=== PATIENT | female | born 1935 | race Caucasian/White ===

== ENCOUNTER → 2016-12-07 | Outpatient (CLI) | payer MEDICARE ==
--- NOTE | 2016-12-11 18:53 | Diagnostic Imaging Report ---
Digital mammogram bilateral screening. This study was compared to the prior exams of 11/30/2015, 11/25/2014, and 11/10/2013. At this time, there are no current complaints. The current study was also evaluated with A Computer Aided Detection (CAD) system. FINDINGS: There are scattered fibroglandular densities in both breasts which could obscure a lesion. Overall, there does not appear to have been any significant change when compared to the prior exam. No primary or secondary sign of malignancy is noted. 3D tomographic images fail to show any sign of malignancy. IMPRESSION: There is no radiographic evidence for malignancy. ACR BI-RADS Category 1: Negative. Result letter will be mailed to the patient. Note: At least 10% of breast cancer is not imaged by mammography. Dictated by: Dictated on workstation # [id number]
== END ==
LOC: RAD 12:51
PROVIDERS: ATTEND Family Medicine
DX: Z12.31 Encounter for screening mammogram for malignant neoplasm of breast (principal)
CPT/HCPCS: 77067

== ENCOUNTER → 2017-12-10 | Outpatient (CLI) | payer MEDICARE ==
--- NOTE | 2017-12-10 19:10 | Diagnostic Imaging Report ---
INDICATION: Routine screening. Comparison is made with prior mammogram from 12/07/2016 and 11/30/2015. 2-D and 3-D bilateral screening mammography was performed with CAD. The current study was also evaluated with a Computer Aided Detection (CAD) system. FINDINGS: Scattered fibroglandular densities are identified bilaterally. Small circumscribed benign-appearing nodules again noted bilaterally and most suggestive of intraparenchymal lymph nodes. Benign parenchymal and vascular calcifications are also seen bilaterally. No spiculated mass or malignant-appearing microcalcifications are seen. The axillae are unremarkable. IMPRESSION: No mammographic features suspicious for malignancy are identified. ACR BI-RADS Category 2: Benign findings. Result letter will be mailed to the patient. Note: At least 10% of breast cancer is not imaged by mammography. Dictated by: Dictated on workstation # [id number]
== END ==
LOC: RAD 14:56
PROVIDERS: ATTEND Family Medicine
DX: Z12.31 Encounter for screening mammogram for malignant neoplasm of breast (principal)
CPT/HCPCS: 77067

== ENCOUNTER 2018-06-04 18:50 | Emergency (ER) | payer MEDICARE ==
[~2018-06-04] VITALS: Ht 167.6 cm; Wt 98.9 kg
--- OUTSIDE RECORDS SUMMARY | 2018-06-04 18:56 | XMS REPORT | Continuity of Care Document ---
Author Author [facility] Organization [facility] Address Unknown Phone Unavailable Allergies There is no data. Medications There is no data. Problems Date Dx Coded Attending Type Code Diagnosis Diagnosed By 11/27/2014 GELLENDER DO, MARIA ESTHER Bonilla Ot V76.12 12/01/2014 GELLENDER DO, MARIA ESTHER A Ot V76.12 12/16/2014 GELLENDER DO, MARIA ESTHER A Ot V76.12 11/30/2015 GELLENDER DO, MARIA ESTHER A Ot V76.12 OTH SCREEN MAMMO-MALIGN NEOPLASM OF BARNEY 11/30/2015 GELLENDER DO, MARIA ESTHER A Ot V76.12 OTH SCREEN MAMMO-MALIGN NEOPLASM OF BARNEY 11/30/2015 GELLENDER DO, MARIA ESTHER A Ot V76.12 OTH SCREEN MAMMO-MALIGN NEOPLASM OF BARNEY 12/01/2015 GELLENDER DO, MARIA ESTHER A Ot Z12.31 ENCNTR SCREEN MAMMOGRAM FOR MALIGNANT NE 12/01/2015 GELLENDER DO, MARIA ESTHER A Ot Z12.31 ENCNTR SCREEN MAMMOGRAM FOR MALIGNANT NE 12/21/2015 GELLENDER DO, MARIA ESTHER A Ot Z12.31 ENCNTR SCREEN MAMMOGRAM FOR MALIGNANT NE 12/07/2016 GELLENDER DO, MARIA ESTHER A Ot Z12.31 ENCNTR SCREEN MAMMOGRAM FOR MALIGNANT NE 12/07/2016 GELLENDER DO, MARIA ESTHER A Ot V76.12 OTH SCREEN MAMMO-MALIGN NEOPLASM OF BARNEY 12/07/2016 GELLENDER DO, MARIA ESTHER A Ot V76.12 OTH SCREEN MAMMO-MALIGN NEOPLASM OF BARNEY 12/07/2016 GELLENDER DO, MARIA ESTHER A Ot V76.12 OTH SCREEN MAMMO-MALIGN NEOPLASM OF BARNEY 12/07/2016 GELLENDER DO, MARIA ESTHER A Ot Z12.31 ENCNTR SCREEN MAMMOGRAM FOR MALIGNANT NE 12/07/2016 GELLENDER DO, MARIA ESTHER A Ot Z12.31 ENCNTR SCREEN MAMMOGRAM FOR MALIGNANT NE 12/27/2016 GELMARIA ESTHER JAQUEZ DO Ot Z12.31 ENCNTR SCREEN MAMMOGRAM FOR MALIGNANT NE 12/16/2017 Ot Z12.31 ENCNTR SCREEN MAMMOGRAM FOR MALIGNANT NE 01/17/2018 Ot Z12.31 ENCNTR SCREEN MAMMOGRAM FOR MALIGNANT NE Procedures There is no data. Results There is no data. Encounters ACCT No. Visit Date/Time Discharge Status Pt. Type Provider Facility Loc./Unit Complaint [id number] 12/07/2016 12:51:00 12/07/2016 23:59:59 CLS Outpatient MARIA ESTHER TALBOT DO [facility] RAD SCREENING [id number] 11/30/2015 13:46:00 11/30/2015 23:59:59 CLS Outpatient MARIA ESTHER TALBOT DO [facility] RAD SCREENING [id number] 11/25/2014 10:04:00 11/25/2014 23:59:59 CLS Outpatient MARIA ESTHER TALBOT DO [facility] RAD SCREENING [id number] 11/10/2013 10:00:00 11/10/2013 23:59:59 CLS Outpatient MARIA ESTHER TALBOT DO [facility] RAD ROUTINE [id number] 11/07/2012 10:13:00 11/07/2012 23:59:59 CLS Outpatient MARIA ESTHER TALBOT DO [facility] RAD SCREENING [id number] 06/04/2018 18:51:00 ACT Emergency SINDHU ROQUE MD [facility] ER NOSE AND EYE BLEEDING [id number] 12/10/2017 14:56:00 Document Registration [email or web address] 11/25/2014 10:07:19 ACT Document Registration
--- NOTE | 2018-06-04 19:24 | ED EENT ---
History of Present Illness General Chief Complaint: Nasal Problems Stated Complaint: NOSE AND EYE BLEEDING Nursing Triage Note: Patient advises that she experienced a nosebleed yesterday that improved however tonight she experienced another nosebleed that she was unable to get stopped. She states that the bleeding is in her eye as well. Source: patient Exam Limitations: no limitations History of Present Illness Date Seen by Provider: Jun 04, 2018 Time Seen by Provider: 19:00 Initial Comments 83-year-old female who presents to the emergency room with complaints of a nosebleed. She reports that she had a nosebleed yesterday that stopped on its own but tonight she tried to blow her nose no started bleeding again. She denies any nasal trauma or denies using blood thinners. She did have some bleeding was coming out of her left eye. Past Qhzhqkf-Zcraoj-Rqxlwp Hx Patient Social History Alcohol Use: Denies Use Recreational Drug Use: No Smoking Status: Never a Smoker Recent Foreign Travel: No Contact w/Someone Who Travel: No Recent Infectious Disease Expo: No Recent Hopitalizations: No Seasonal Allergies Seasonal Allergies: No Past Medical History Surgeries: Yes (rectocele, cystocele) Hysterectomy, Orthopedic Respiratory: No Cardiac: No Neurological: No Genitourinary: No Gastrointestinal: No Musculoskeletal: No Endocrine: No HEENT: No Cancer: No Psychosocial: No Physical Exam Vital Signs Vital Signs - First Documented Height, Weight, BMI Height: 5'6.00" Weight: 218lbs. oz. 98.014458qg; BMI Method:Stated Procedures/Interventions Nasal : Nasal Location: Left Clots Cleared from Nasal: Patient Blowing Inspection with: Otoscope, Nasal Speculum Progress The nares were cleared by having the patient blow her nose. A large clot was removed out of the left knee air. Pressure was held with a nasal clamp. The bleeding stopped at this time. We will observe the patient for a bit to ensure that the bleeding doesn't stop. Progress/Results/Core Measures Results/Orders Vital Signs/I&O 06/04/18 19:03 B/P (MAP) Departure Impression Primary Impression: Epistaxis Disposition: HOME, SELF-CARE Condition: Stable/Unchanged Departure-Patient Inst. Decision time for Depature: 19:58 Referrals: MARIA ESTHER TALBOT DO (PCP/Family) Primary Care Physician Patient Instructions: Nosebleeds (DC) Add. Discharge Instructions: You may benefit by using a humidifier and your home along with your fireplace to prevent further prompting out your mucous membranes. If the bleeding should return hold pressure if it does not stop with manual pressure return back to the emergency room. Follow-up with your primary care as needed. Return back to the emergency room for worsening symptoms or concerns as needed. All discharge instructions reviewed with patient and/or family. Voiced understanding. GENIE GUSMAN Jun 04, 2018 19:24
[2018-06-04 20:02] VITALS: BP 138/63
== END 2018-06-04 20:03 | disposition home or self-care (01) ==
LOC: EDUNIT# 18:50 → ER 18:51
DX: R04.0 Epistaxis (principal); Z90.710 Acquired absence of both cervix and uterus; Z98.890 Other specified postprocedural states

== ENCOUNTER 2018-11-26 05:35 | Outpatient (CLI) | payer MEDICARE ==
[~2018-11-26] VITALS: Ht 167.6 cm; Wt 99.8 kg
[2018-11-27] MEDS ORDERED: MELA5CAP PO (12:27)
[2018-11-27] MEDS ORDERED: ATEN50TA PO (12:27)
[2018-11-27] MEDS ORDERED: DESV50TA PO (12:27)
[2018-11-27] MEDS ORDERED: SIMV20TA3 PO (12:27)
[2018-11-27] MEDS ORDERED: LORA10TA7 PO (12:27)
[2018-11-27] MEDS ORDERED: FESO4TAB PO (12:27)
== END 2018-11-27 12:40 | disposition home or self-care (01) ==
LOC: PREOP 05:35
PROVIDERS: ATTEND Specialist
DX: Z01.818 Encounter for other preprocedural examination (principal)

== ENCOUNTER 2018-11-29 07:13 | Day surgery (SDC) | payer MEDICARE ==
[~2018-11-29] VITALS: Ht 167.6 cm; Wt 99.8 kg
[~2018-11-29 07:13] MED LIST: ATEN50TA PO; DESV50TA PO; FESO4TAB PO; LORA10TA7 PO; MELA5CAP PO; SIMV20TA3 PO
[2018-11-29] MEDS ORDERED: MOXIFLOXACIN OPHTH SOLN 5 MG/ML 0.3 ML SYRINGE OP ONE (07:30)
[2018-11-29] MEDS ORDERED: LIDOCAINE PF 1% 2 ML AMP IR PRN (07:30)
[2018-11-29] MEDS ORDERED: TIMOLOL MALEATE 0.5% 5 ML (TIMOPTIC) BTL OU PRN (07:30)
[2018-11-29] MEDS ORDERED: POVIDONE (BETADINE) OPHTH SOLN 5% 30 ML OP ONE (07:30)
[2018-11-29 07:35] VITALS: BP 189/89
[2018-11-29] MEDS: TETRACAINE 0.5% OPHTH SOLN 4 ML BTL (SINGLE DOSE ONLY) OU PRN ×4 (07:49→08:11)
[2018-11-29] MEDS: PHENYLEPHRINE 10% OPHTH (NEO-SYN) 5 ML BTL OU SCH ×3 (08:00→08:11)
[2018-11-29] MEDS: CYCLOPENTOLATE 1% (CYCLOGYL) 2 ML DROPS OP SCH ×3 (08:00→08:11)
[2018-11-29] MEDS ORDERED: MIDAZOLAM 2 MG/2 ML (VERSED) VIAL ONE (08:31)
--- NOTE | 2018-11-29 08:31 | Ophthalmologist Pre-Op Note ---
Pre-Operative Progress Note H&P Reviewed The H&P was reviewed, patient examined and no changes noted. Date H&P Reviewed: Nov 29, 2018 Time H&P Reviewed: 08:31 Pre-Op Dx Cataract, Right Eye ETIENNE HOUSTON MD Nov 29, 2018 08:31
--- NOTE | 2018-11-29 08:54 | Ophthalmology Operative Report ---
Cataract removal/placement IOL PREOPERATIVE DIAGNOSIS: Cataract Right Eye POSTOPERATIVE DIAGNOSIS: Cataract Right Eye PROCEDURE: Cataract removal and placement of posterior chamber implant, right eye SURGEON: Herbert Houston ANESTHESIA: Topical with sedation COMPLICATIONS: None ESTIMATED BLOOD LOSS: Minimal DESCRIPTION OF PROCEDURE: After proper informed consent was obtained, the patient, a 83 female, was taken to the Operating Room and the right eye was anesthetized with tetracaine. The right eye was then prepped and draped in the usual manner. A wire lid speculum was placed. A paracentesis was made at the left hand position. Preservative free lidocaine was injected into the anterior chamber followed by viscoelastic. A clear corneal incision was made in the temporal position. A capsulorrhexis was preformed and the central nuclear and cortical material were removed. The posterior capsule was polished and Khris 22.0 AU00T0 IOL was placed into the capsular bag. The residual viscoelastic was aspirated and balanced saline solution was injected into the anterior chamber. Moxifloxacin was injected into the anterior chamber. The wound was checked and found to be water tight. The patient tolerated the procedure well without complications. HERBERT HOUSTON MD Nov 29, 2018 08:54
[2018-11-29 09:05] VITALS: BP 170/95
[2018-11-29] MEDS ORDERED: acetaZOLAMIDE ER 500 MG CAP (DIAMOX SEQUELS) PO ONE (09:30)
--- NOTE | 2018-11-29 10:56 | Anesthesia-General Post-Op ---
MAC Patient Condition Mental Status/LOC: Same as Preop Cardiovascular: Satisfactory Nausea/Vomiting: Absent Respiratory: Satisfactory Pain: Controlled Complications: Absent Post Op Complications Complications None Follow Up Care/Instructions Patient Instructions None needed. Anesthesiology Discharge Order Discharge Order Patient is doing well, no complaints, stable vital signs, no apparent adverse anesthesia problems. No complications reported per nursing. FEROZ PALMA CRNA Nov 29, 2018 10:56
== END 2018-11-29 09:05 | disposition home or self-care (01) ==
LOC: SDC 07:13
PROVIDERS: ATTEND Specialist
DX: H25.11 Age-related nuclear cataract, right eye (principal); F41.9 Anxiety disorder, unspecified; I10 Essential (primary) hypertension; Z91.048 Other nonmedicinal substance allergy status; Z90.710 Acquired absence of both cervix and uterus; Z79.899 Other long term (current) drug therapy; Z80.41 Family history of malignant neoplasm of ovary

== ENCOUNTER 2018-12-11 06:06 | Outpatient (CLI) | payer MEDICARE ==
[~2018-12-11] VITALS: Ht 167.6 cm; Wt 52.2 kg
== END 2018-12-11 11:54 | disposition home or self-care (01) ==
LOC: PREOP 06:06
PROVIDERS: ATTEND Specialist
DX: Z01.818 Encounter for other preprocedural examination (principal)

== ENCOUNTER 2018-12-13 07:04 | Day surgery (SDC) | payer MEDICARE ==
[~2018-12-13] VITALS: Ht 167.6 cm; Wt 52.2 kg
[2018-12-13 07:15] VITALS: BP 171/82
[2018-12-13] MEDS ORDERED: POVIDONE (BETADINE) OPHTH SOLN 5% 30 ML OP ONE (07:15)
[2018-12-13] MEDS ORDERED: LIDOCAINE PF 1% 2 ML AMP IR PRN (07:15)
[2018-12-13] MEDS ORDERED: MOXIFLOXACIN OPHTH SOLN 5 MG/ML 0.3 ML SYRINGE OP ONE (07:15)
[2018-12-13] MEDS ORDERED: TIMOLOL MALEATE 0.5% 5 ML (TIMOPTIC) BTL OU PRN (07:15)
[2018-12-13] MEDS: TETRACAINE 0.5% OPHTH SOLN 4 ML BTL (SINGLE DOSE ONLY) OU PRN ×4 (07:19→07:40)
[2018-12-13] MEDS: PHENYLEPHRINE 10% OPHTH (NEO-SYN) 5 ML BTL OU SCH ×3 (07:30→07:40)
[2018-12-13] MEDS: CYCLOPENTOLATE 1% (CYCLOGYL) 2 ML DROPS OP SCH ×3 (07:30→07:40)
[2018-12-13] MEDS ORDERED: MIDAZOLAM 2 MG/2 ML (VERSED) VIAL ONE (08:10)
--- NOTE | 2018-12-13 08:13 | Ophthalmologist Pre-Op Note ---
Pre-Operative Progress Note H&P Reviewed The H&P was reviewed, patient examined and no changes noted. Date H&P Reviewed: Dec 13, 2018 Time H&P Reviewed: 08:13 Pre-Op Dx Cataract, Left Eye ETIENNE HOUSTON MD Dec 13, 2018 08:13
--- NOTE | 2018-12-13 08:37 | Ophthalmology Operative Report ---
Cataract removal/placement IOL PREOPERATIVE DIAGNOSIS: Cataract Left Eye POSTOPERATIVE DIAGNOSIS: Cataract Left Eye PROCEDURE: Cataract removal and placement of posterior chamber implant, left eye SURGEON: Herbert Houston ANESTHESIA: Topical with sedation COMPLICATIONS: None ESTIMATED BLOOD LOSS: Minimal DESCRIPTION OF PROCEDURE: After proper informed consent was obtained, the patient, a 83 female, was taken to the Operating Room and the left eye was anesthetized with tetracaine. The left eye was then prepped and draped in the usual manner. A wire lid speculum was placed. A paracentesis was made at the left hand position. Preservative free lidocaine was injected into the anterior chamber followed by viscoelastic. A clear corneal incision was made in the temporal position. A capsulorrhexis was preformed and the central nuclear and cortical material were removed. The posterior capsule was polished and an Khris 21.5 AU00T0 was placed into the capsular bag. The residual viscoelastic was aspirated and balanced saline solution was injected into the anterior chamber. Moxifloxacin was injected into the anterior chamber. The wound was checked and found to be water tight. The patient tolerated the procedure well without complications. HERBERT HOUSTON MD Dec 13, 2018 08:37
[2018-12-13 08:45] VITALS: BP 180/86
[2018-12-13] MEDS ORDERED: acetaZOLAMIDE ER 500 MG CAP (DIAMOX SEQUELS) PO ONE (09:00)
--- NOTE | 2018-12-13 14:39 | Anesthesia-General Post-Op ---
MAC Patient Condition Mental Status/LOC: Same as Preop Cardiovascular: Satisfactory Nausea/Vomiting: Absent Respiratory: Satisfactory Pain: Controlled Complications: Absent Post Op Complications Complications None Follow Up Care/Instructions Patient Instructions None needed. Anesthesiology Discharge Order Discharge Order Patient is doing well, no complaints, stable vital signs, no apparent adverse anesthesia problems. No complications reported per nursing. SALOMÓN ROSS CRNA Dec 13, 2018 14:39
== END 2018-12-13 08:44 | disposition home or self-care (01) ==
LOC: SDC 07:04
PROVIDERS: ATTEND Specialist
DX: H25.12 Age-related nuclear cataract, left eye (principal); I10 Essential (primary) hypertension; F41.9 Anxiety disorder, unspecified; Z90.710 Acquired absence of both cervix and uterus; Z91.048 Other nonmedicinal substance allergy status; Z80.41 Family history of malignant neoplasm of ovary; Z79.899 Other long term (current) drug therapy

== ENCOUNTER → 2018-12-16 | Outpatient (CLI) | payer MEDICARE ==
--- NOTE | 2018-12-16 14:12 | Diagnostic Imaging Report ---
INDICATION: Routine screening. COMPARISON: 12/10/2017 and 12/07/2016. TECHNIQUE: 2D and 3D bilateral screening mammography was performed with CAD. FINDINGS: Scattered fibroglandular densities are identified bilaterally. Benign parenchymal and vascular calcifications are again noted. The previously noted circumscribed benign nodules in both breasts are stable. No new mass or malignant appearing microcalcifications are seen. The axillae are unremarkable. IMPRESSION: No mammographic features suspicious for malignancy are identified. ACR BI-RADS Category 2: Benign findings. Result letter will be mailed to the patient. Note: At least 10% of breast cancer is not imaged by mammography. Dictated by: Dictated on workstation # [id number]
== END ==
LOC: RAD 09:54
PROVIDERS: ATTEND Family Medicine
DX: Z12.31 Encounter for screening mammogram for malignant neoplasm of breast (principal)
CPT/HCPCS: 77067

== ENCOUNTER → 2019-12-18 | Outpatient (CLI) | payer MEDICARE ==
[~2019-12-18] MED LIST changes: +SIMV20TA26 PO; -SIMV20TA3 PO
--- NOTE | 2019-12-18 13:17 | Diagnostic Imaging Report ---
INDICATION: Routine screening. Comparison is made with prior mammogram 12/16/2018 and 12/10/2017. 2-D and 3-D bilateral screening mammography was performed with CAD. Scattered fibroglandular densities are identified bilaterally. The parenchymal pattern appears stable. No dominant mass or malignant appearing microcalcifications are seen. Benign nodules are stable. There are benign parenchymal and vascular calcification bilaterally. Axillae are unremarkable. IMPRESSION: BI-RADS Category 2 No mammographic features suspicious for malignancy are identified. ACR BI-RADS Category 2: Benign findings. Result letter will be mailed to the patient. Note: At least 10% of breast cancer is not imaged by mammography. Dictated by: Dictated on workstation # [id number]
== END ==
LOC: RAD 10:48
PROVIDERS: ATTEND Family Medicine
DX: Z12.31 Encounter for screening mammogram for malignant neoplasm of breast (principal)
CPT/HCPCS: 77063; 77067

== ENCOUNTER → 2020-12-20 | Outpatient (CLI) | payer MEDICARE ==
--- NOTE | 2020-12-20 13:03 | Diagnostic Imaging Report ---
INDICATION: Routine screening. COMPARISON: Correlation is made with the prior mammograms from 12/18/2019 and 12/16/2018. TECHNIQUE: 2D and 3D bilateral screening mammography was performed with CAD. FINDINGS: Scattered fibroglandular densities are identified bilaterally. Tiny circumscribed benign-appearing nodules in the upper and outer aspects of both breasts are stable. No spiculated mass or malignant-appearing microcalcifications are seen. There are benign parenchymal and vascular calcifications bilaterally. The axillae are unremarkable. IMPRESSION: No mammographic features suspicious for malignancy are identified. ACR BI-RADS Category 2: Benign findings. Result letter will be mailed to the patient. Note: At least 10% of breast cancer is not imaged by mammography. Dictated by: Dictated on workstation # [id number]
== END ==
LOC: RAD 10:15
PROVIDERS: ATTEND Family Medicine
DX: Z12.31 Encounter for screening mammogram for malignant neoplasm of breast (principal)
CPT/HCPCS: 77063; 77067

== ENCOUNTER → 2022-01-23 | Outpatient (CLI) | payer MEDICARE ==
--- NOTE | 2022-01-24 14:48 | Diagnostic Imaging Report ---
Indication: Routine screening Comparison is made with prior mammogram 12/20/2020 and 12/18/2019. 2-D and 3-D bilateral screening mammography was performed with CAD. CAD is utilized. The current study was also evaluated with a Computer Aided Detection (CAD) system. Scattered fibroglandular densities are identified bilaterally. Benign-appearing nodules in both breasts appears stable. There are benign parenchymal and vascular calcifications bilaterally. No spiculated mass or malignant-appearing microcalcifications are seen. Axillae are unremarkable. IMPRESSION: BI-RADS Category 2 No mammographic features suspicious for malignancy are identified. ACR BI-RADS Category 2: Benign findings. Result letter will be mailed to the patient. Note: At least 10% of breast cancer is not imaged by mammography. Dictated by: Dictated on workstation # [id number]
== END ==
LOC: RAD 15:40
PROVIDERS: ATTEND Family Medicine
DX: Z12.31 Encounter for screening mammogram for malignant neoplasm of breast (principal)
CPT/HCPCS: 77063; 77067